=== PATIENT | male | born 2000 | race Caucasian/White ===

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

== ENCOUNTER 2019-04-07 09:25 | Emergency (ER) | payer MEDICAID ==
[~2019-04-07] VITALS: Ht 172.7 cm; Wt 72.6 kg
[2019-04-07 09:32] VITALS: Ht 172.7 cm; Wt 72.6 kg
[2019-04-07 12:11] VITALS: BP 114/61
== END 2019-04-07 12:11 | disposition home or self-care (01) ==
LOC: ED 09:25
DX: J20.9 Acute bronchitis, unspecified (principal)
CPT/HCPCS: 87804; Q0092